=== PATIENT | male | born 2005 | race Caucasian/White ===

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

== ENCOUNTER 2023-08-21 19:51 | Emergency (ER) | payer OTHER ==
[~2023-08-21] VITALS: Ht 167.6 cm; Wt 97.5 kg
[2023-08-21] MEDS ORDERED: CLINDAMYCIN HCL 300 MG CAPSULE PO ONE (21:10)
[2023-08-21] MEDS ORDERED: CLINDAMYCIN HC300 MG PO (21:10)
== END 2023-08-21 21:18 | disposition home or self-care (01) ==
LOC: ED 19:51
DX: K04.7 Periapical abscess without sinus (principal); F90.9 Attention-deficit hyperactivity disorder, unspecified type; Z88.6 Allergy status to analgesic agent; Z90.89 Acquired absence of other organs

== ENCOUNTER 2023-11-25 04:37 | Emergency (ER) | payer OTHER ==
[~2023-11-25] VITALS: Ht 160 cm; Wt 108.9 kg
[~2023-11-25 04:37] MED LIST changes: +CLINDAMYCIN HC300 MG PO
[2023-11-25] MEDS ORDERED: CLINDAMYCIN HCL 300 MG CAPSULE PO ONE (05:25)
[2023-11-25] MEDS ORDERED: Acetaminophen/Hydrocodone 5 MG/325 MG TABLET PO ONE (05:25)
[2023-11-25] MEDS ORDERED: Ondansetron Hydrochloride 4 MG TAB SL ONE (05:25)
[2023-11-25] MEDS ORDERED: CLINDAMYCIN HC300 MG PO (05:28)
== END 2023-11-25 05:32 | disposition home or self-care (01) ==
LOC: ED 04:37
DX: K02.9 Dental caries, unspecified (principal); Z88.1 Allergy status to other antibiotic agents; Z90.89 Acquired absence of other organs